=== PATIENT | male | born 1985 | race American Indian/Alaskan Native ===

== ENCOUNTER 2021-12-20 14:12 | Emergency (ER) | payer BC ==
[2021-12-20 15:06] VITALS: BP 124/88
--- NOTE | 2021-12-20 15:19 | Emergency Department Report ---
- General Chief complaint: Skin Rash Stated complaint: RASH ON RIGHT SIDE OF HIM Time Seen by Provider: 12/20/21 15:11 Source: patient Mode of arrival: Ambulatory Limitations: No Limitations - History of Present Illness Initial comments: 36-year-old black male with no past medical history presents to the emergency department for evaluation of rash to right flank area. He states that he noticed a rash yesterday and is gotten worse today. He states the area is burning and painful. He denies fever. MD complaint: rash -: Gradual, days(s) (1) Tetanus Up to Date: yes Severity: mild Severity scale (0 -10): 4 Quality: burning, aching Consistency: constant Associated symptoms: denies other symptoms Treatments Prior to Arrival: none - Related Data Previous Rx's Medication Instructions Recorded Last Taken Type Acetaminophen/Codeine [Tylenol 1 tab PO Q6H PRN #12 tab 12/20/21 Unknown Rx /Codeine # 3 tab] Valacyclovir HCl [Valacyclovir] 1,000 mg PO TID #21 tab 12/20/21 Unknown Rx Abscess Boil HPI - HPI Chief Complaint: Skin Rash Stated Complaint: RASH ON RIGHT SIDE OF HIM Time Seen by Provider: 12/20/21 15:11 Home Medications: Previous Rx's Medication Instructions Recorded Last Taken Type Acetaminophen/Codeine [Tylenol 1 tab PO Q6H PRN #12 tab 12/20/21 Unknown Rx /Codeine # 3 tab] Valacyclovir HCl [Valacyclovir] 1,000 mg PO TID #21 tab 12/20/21 Unknown Rx ED Review of Systems ROS: Stated complaint: RASH ON RIGHT SIDE OF HIM Other details as noted in HPI Comment: All other systems reviewed and negative Constitutional: denies: chills, fever Respiratory: denies: shortness of breath Cardiovascular: denies: chest pain, palpitations Gastrointestinal: denies: abdominal pain, nausea, vomiting Neurological: denies: headache, weakness ED Past Medical Hx - Medications Home Medications: Home Medications Medication Instructions Recorded Confirmed Last Taken Type Acetaminophen/Codeine [Tylenol 1 tab PO Q6H PRN #12 tab 12/20/21 Unknown Rx /Codeine # 3 tab] Valacyclovir HCl [Valacyclovir] 1,000 mg PO TID #21 tab 12/20/21 Unknown Rx ED Physical Exam - General Limitations: No Limitations General appearance: alert, in no apparent distress - Head Head exam: Present: atraumatic, normocephalic - Eye Eye exam: Present: normal appearance. Absent: scleral icterus, conjunctival injection, periorbital swelling, periorbital tenderness - Neck Neck exam: Present: normal inspection. Absent: lymphadenopathy - Respiratory Respiratory exam: Present: normal lung sounds bilaterally. Absent: respiratory distress, wheezes, rales, rhonchi, stridor, chest wall tenderness - Cardiovascular Cardiovascular Exam: Present: regular rate, normal heart sounds - GI/Abdominal GI/Abdominal exam: Present: soft, normal bowel sounds. Absent: distended, tenderness, guarding, rebound, rigid - Extremities Exam Extremities exam: Present: normal inspection, normal capillary refill - Back Exam Back exam: Present: normal inspection. Absent: CVA tenderness (R), CVA tenderness (L) - Neurological Exam Neurological exam: Present: alert, oriented X3, normal gait - Psychiatric Psychiatric exam: Present: normal affect, normal mood - Skin Skin exam: Present: warm, dry, intact, normal color - Expanded Skin Exam Expanded 1 - Diffuse, erythemic vesicular rash noted. area noted to be painful to touch. ED Course Vital Signs 12/20/21 15:03 Temperature 98.9 F Pulse Rate 65 Respiratory 14 Rate Blood Pressure 124/88 [Right] O2 Sat by Pulse 98 Oximetry ED Medical Decision Making - Medical Decision Making 36-year-old black male with no past medical history presents to the emergency department for evaluation of rash to right flank area. He states that he noticed a rash yesterday and is gotten worse today. He states the area is burning and painful. He denies fever. Wilbert consistent with shingles. Patient will be treated with 7-day course of valacyclovir and Tylenol 3 to use as needed for pain. He is advised to take medications as prescribed and follow-up with his primary care provider if no improvement or worsening symptoms. He is advised to return to the emergency department as needed. He verbalizes understanding of and agreement with plan of care. Critical care attestation.: If time is entered above; I have spent that time in minutes in the direct care of this critically ill patient, excluding procedure time. ED Disposition Clinical Impression: Shingles Qualifiers: Herpes zoster complications: without complications Qualified Code(s): B02.9 - Zoster without complications Disposition: 01 HOME / SELF CARE / HOMELESS Is pt being admited?: No Does the pt Need Aspirin: No Condition: Stable Instructions: Shingles, [id number] Additional Instructions: Take medications as prescribed. Follow up with pcp if no improvement or worsening symptoms. Return to ED as needed. Prescriptions: Acetaminophen/Codeine [Tylenol /Codeine # 3 tab] 1 tab PO Q6H PRN #12 tab PRN Reason: Pain , Severe (7-10) Valacyclovir HCl [Valacyclovir] 1,000 mg PO TID #21 tab Referrals: SERGIO TURCIOS MD [Primary Care Provider] - 3-5 Days Forms: Work/School Release Form(ED) Time of Disposition: 15:22
== END 2021-12-20 15:30 | disposition home or self-care (01) ==
LOC: ED 14:12
DX: B02.9 Zoster without complications (principal)
CPT/HCPCS: 99282